=== PATIENT | male | born 1990 | race Caucasian/White ===

== ENCOUNTER → 2024-02-08 | Emergency (ER) | payer MEDICAID ==
[~2024-02-08] VITALS: Ht 177.8 cm; Wt 65.9 kg
[~2024-02-08] MED LIST: OLAN2.5T3 PO
[2024-02-08 20:22] VITALS: BP 108/76; PULSE 60; RESP 14; O2SAT 97
[2024-02-08 21:38] VITALS: TEMP 97.9
== END | disposition home or self-care (01) ==
LOC: ER 19:56
DX: S52.611A Displaced fracture of right ulna styloid process, initial encounter for closed fracture (principal); F12.90 Cannabis use, unspecified, uncomplicated; F14.90 Cocaine use, unspecified, uncomplicated; Z88.0 Allergy status to penicillin; Z79.899 Other long term (current) drug therapy; W23.0XXA Caught, crushed, jammed, or pinched between moving objects, initial encounter; Y93.89 Activity, other specified; Y92.89 Other specified places as the place of occurrence of the external cause; Y99.8 Other external cause status
CPT/HCPCS: 29125; 73110; 99283

== ENCOUNTER 2024-02-26 21:30 | Emergency (ER) | payer MEDICAID ==
[~2024-02-26] VITALS: Ht 177.8 cm; Wt 64.1 kg
[2024-02-26 21:48] VITALS: BP 123/78; PULSE 61; RESP 16; TEMP 98.5; O2SAT 99
== END 2024-02-26 22:42 | disposition home or self-care (01) ==
LOC: ER 21:31
DX: S52.611A Displaced fracture of right ulna styloid process, initial encounter for closed fracture (principal); F12.90 Cannabis use, unspecified, uncomplicated; F14.90 Cocaine use, unspecified, uncomplicated; Z88.0 Allergy status to penicillin; Z79.899 Other long term (current) drug therapy; X58.XXXA Exposure to other specified factors, initial encounter; Y93.89 Activity, other specified; Y92.89 Other specified places as the place of occurrence of the external cause; Y99.8 Other external cause status
CPT/HCPCS: 73110; 99283

== ENCOUNTER 2025-02-27 11:48 | Emergency (ER) | payer MEDICAID ==
[~2025-02-27] VITALS: Ht 177.8 cm; Wt 63.0 kg
[2025-02-27 12:10] VITALS: BP 127/69; PULSE 60; RESP 16; TEMP 98.6; O2SAT 97
--- NOTE | 2025-02-27 12:51 | Physician Documentation ---
History of Present Illness ~ Chief Complaint: Medical Clearance Stated Complaint: REQUESTED CHEST XRAY TO R/O TB Time Seen by MD: 12:49 HPI Patient presented to the emergency department without any medical need. Patient reports that he needs a TB test done two the can be admitted into the rehab facility. Patient was not prominent redo not do a TB test here he should attempt to try [facility] or another local resource. Tetanus within 5 years?: No () Medication Reconciliation Allergies: Coded Allergies: Penicillins (Verified Allergy, Unknown, 01/23/25) Scheduled Olanzapine* (Zyprexa*), 7.5 MG PO DAILY, (Reported) Past Medical History Past Medical History: Schizophrenia Past Surgical History: orthopedic surgeries Alcohol Use: Occasionally Drug Use: marijuana, cocaine Physical Exam Vital Signs: Temperature: 98.6, Heart Rate: 60, Respiratory Rate: 16, BP: 127/69, Pulse Oximetry: 97, Weight: 62.950 Oxygen Flow Rate: 0 Physical Exam VITALS: Reviewed and as above. GENERAL: Alert, no apparent distress. HEENT: Normocephalic, atraumatic, PERRL, EOMI, dry mucosa, no erythema RESPIRATORY: Lungs clear, normal breath sounds, no respiratory distress. CHEST: No accessory muscle use, no retractions CV: Regular rate, rhythm, no edema, no murmur, No: JVD GI: Soft, non-tender, bowels sounds present, no rebound, guarding, or rigidity BACK: No CVA tenderness, or swelling MUSCULOSKELETAL No deformities, no edema SKIN: Warm and dry, no rash NEURO: Oriented x4, No motor or sensory deficit PSYCH: Normal mood and affect, no agitation Progress Results/Orders Results/Orders Vital Signs 02/27/25 12:10 Temp 98.6 Pulse 60 Resp 16 B/P (MAP) 127/69 Pulse Ox 97 O2 Flow Rate 0 Medical Decision Making Findings Patient presented for evaluation for medical clearance for admission to a detox center. Differential Dx:Considerations: Include: Intoxication-Alcohol, Intoxication-O ther drug, Personality disorder, Substance abuse disorder, Acute delirium, Closed head injury, Cervical spine injury, Skull fracture, Fracture(s), Abrasion, Contusion, Foreign body, Hematoma, Laceration, Alcohol withdrawl syndrom, Encephalopathy, Hepatitis, Medically stable, Other Departure Disposition: 01 HOME / SELF CARE / HOMELESS Impression: Primary Impression: Encounter for medical screening examination Condition: Stable Discharge Instructions: Medical Screening Exam Additional Instructions: Patient from it we do not do TB test here at this facility. Instructed to follow up with the [facility] or any other local resources that may provide that service. Referrals: NO PRIMARY CARE PROVIDER (PCP) Education Educated: Patient Educated regarding: need for follow up Signature Scribe Signature: A Attestation: Scribed for Delgado Bliss by ADRIANNA Schroeder . 03/01/25 13:01 DELGADO BLISS Feb 27, 2025 12:51
== END 2025-02-27 12:58 | disposition home or self-care (01) ==
LOC: ER 11:49
DX: Z13.89 Encounter for screening for other disorder (principal); F20.9 Schizophrenia, unspecified; F12.90 Cannabis use, unspecified, uncomplicated; F14.90 Cocaine use, unspecified, uncomplicated; Z88.0 Allergy status to penicillin; Z79.899 Other long term (current) drug therapy
CPT/HCPCS: 99282

== ENCOUNTER 2025-04-07 22:22 | Emergency (ER) | payer MEDICAID ==
[~2025-04-07] VITALS: Ht 175.3 cm; Wt 70.5 kg
[2025-04-07 22:24] VITALS: BP 138/93; PULSE 74; RESP 16; TEMP 98.3; O2SAT 98
--- NOTE | 2025-04-07 23:05 | Physician Documentation ---
History of Present Illness ~ Chief Complaint: Wrist pain Stated Complaint: WRIST PAIN Time Seen by MD: 23:00 HPI 34-year-old male called the ambulance this evening secondary to him reaching for a claim administrator in his friend's couch when he injured his right wrist. States he heard a snap and developed swelling on the lateral aspect of his right wrist. Denies any numbness or tingling denies any trauma Tetanus within 5 years: No () Medication Reconciliation Allergies: Coded Allergies: Penicillins (Verified Allergy, Intermediate, itchiness, redness, 04/07/25) Scheduled Olanzapine* (Zyprexa*), 7.5 MG PO DAILY, (Reported) Past Medical History Past Medical History: Schizophrenia Past Surgical History: orthopedic surgeries Alcohol Use: Occasionally Drug Use: marijuana, cocaine Review of Systems All Other Systems at this time: Reviewed and Negative ROS As stated above in the HPI, otherwise all systems are reviewed and negative. Physical Exam Vital Signs: Temperature: 98.3, Heart Rate: 74, Respiratory Rate: 16, BP: 138/93, Pulse Oximetry: 98, Weight: 70.550 Physical Exam General: Alert, no apparent distress. Extremities: Normal range of motion, no deformity. Mild swelling and erythema on the lateral aspect of the right wrist Neurologic: Oriented x4. Psychiatric: Normal mood and affect. Skin: Normal color, warm and dry. No edema, no ecchymosis. Progress Results/Orders Results/Orders Orders - RODRIGO ASCENCIO NP Wrist,Limited (Ap/Lat) (04/07/25 23:02) Ibuprofen Tablet (Motrin Tablet) (04/07/25 23:25) Completed Orders - RODRIGO ASCENCIO NP Wrist,Limited (Ap/Lat) (04/07/25 23:02) Vital Signs 04/07/25 22:24 Temp 98.3 Pulse 74 Resp 16 B/P (MAP) 138/93 Pulse Ox 98 Medical Decision Making Findings Appreciate a previous fracture on the distal aspect of the ulna. I did not appreciate any signs of fracture of the radius. Suspecting tendonitis or tendon pull. Advised the patient of this provided ibuprofen while he was here Departure Disposition: 01 HOME / SELF CARE / HOMELESS Impression: Primary Impression: Wrist joint pain Condition: Stable Discharge Instructions: Wrist Pain, Adult Referrals: NO PRIMARY CARE PROVIDER (PCP) Signature Scribe Signature: Scribed for Rodirgo Ascencio [employer] Safety Engineer by Rodrigo Caldera NP . 04/07/25 23:19 Attestation: Scribed for Rodrigo Ascencio [employer] Safety Engineer by Rodrigo Caldera NP . 04/07/25 23:19 RODRIGO ASCENCIO NP Apr 07, 2025 23:05
--- NOTE | 2025-04-07 23:23 | RADIOLOGY REPORT ---
CLINICAL INDICATION: swelling TECHNIQUE: DI WRIST,LIMITED (AP/LAT) Comparison: DI WRIST, COMPLETE (3VW MIN) on DOS: 02/26/24, DI WRIST, COMPLETE (3VW MIN) on DOS: 02/08/24 FINDINGS/IMPRESSION: : Mildly displaced fracture of the ulnar styloid process. The visualized joint spaces are well preserved. Soft tissues are unremarkable.
[2025-04-07] MEDS ORDERED: ibuprofen tablet 400 MG TABLET PO ONE (23:25)
== END 2025-04-08 | disposition home or self-care (01) ==
LOC: ER 22:23
DX: M25.531 Pain in right wrist (principal); F20.9 Schizophrenia, unspecified; F12.90 Cannabis use, unspecified, uncomplicated; F14.90 Cocaine use, unspecified, uncomplicated; Z88.0 Allergy status to penicillin; Z79.899 Other long term (current) drug therapy; Z72.89 Other problems related to lifestyle; Z98.890 Other specified postprocedural states
CPT/HCPCS: 73100; 99283